=== PATIENT | male | born 1945 | race Caucasian/White ===

== ENCOUNTER 2020-09-30 11:10 | Inpatient (IN) ==
[2020-09-30] MEDS ORDERED: Saline Nasal Spray 44 ML BOTTLE NS PRN (20:00)
[2020-09-30] MEDS: NIFEdipine XL (24 HR) 60 MG TAB.ER.24 PO SCH (22:09)
[2020-09-30] MEDS: Melatonin 3 MG TABLET PO SCH (22:09)
[2020-09-30] MEDS: ZINC OXIDE TP SCH (22:10)
[2020-09-30] MEDS: hydrALAZINE 25 MG TABLET PO SCH (22:10)
[2020-09-30] MEDS: DIMETHICONE TP SCH (22:10)
[2020-10-01 05:01] LABS: Basophils % 0.4 %; Eosinophils % 0.2 %; Hematocrit 28.9 % (37.5-50.1); Hemoglobin 9.5 g/dL (12.9-16.9); Immature Granulocytes % 0.6 % (0-4); Lymphocytes # 0.8 K/mcL (0.6-4.6); Lymphocytes % 16.4 %; Mean Corpuscular HGB Conc 32.9 g/dL (31.6-35.5); Mean Corpuscular Hemoglobin 27.6 pg (28.0-33.3); Mean Platelet Volume 10.4 fL (9.4-12.4); Monocytes # 0.5 K/mcL (0.0-1.3); Monocytes % 10.3 %; Neutrophils # 3.7 K/mcL (1.6-8.9); Platelet Count 110 K/mcL (140-400); Red Blood Count 3.44 M/mcL (4.19-5.50); Segmented Neutrophils % 72.1 %; White Blood Count 5.1 K/mcL (4.3-11.1)
[2020-10-01 05:12] LABS: Calcium 8.5 mg/dL (8.6-10.3)
[2020-10-01] MEDS: DIMETHICONE TP SCH ×2 (08:11→20:54)
[2020-10-01] MEDS: ZINC OXIDE TP SCH ×2 (08:11→20:54)
[2020-10-01] MEDS: hydrALAZINE 25 MG TABLET PO SCH ×3 (08:13→20:57)
[2020-10-01] MEDS: Sennosides 8.6 MG TABLET PO SCH (08:13)
[2020-10-01] MEDS: NIFEdipine XL (24 HR) 60 MG TAB.ER.24 PO SCH ×2 (08:13→20:57)
[2020-10-01] MEDS: Cholecalciferol (D-3) 1,000 UNIT (25MCG) TABLET PO SCH (08:13)
[2020-10-01] MEDS: Cyanocobalamin (B-12) 1,000 MCG TABLET PO SCH (08:13)
[2020-10-01] MEDS: Melatonin 3 MG TABLET PO SCH (20:57)
[2020-10-02] MEDS: Cholecalciferol (D-3) 1,000 UNIT (25MCG) TABLET PO SCH (09:37)
[2020-10-02] MEDS: Cyanocobalamin (B-12) 1,000 MCG TABLET PO SCH (09:37)
[2020-10-02] MEDS: carvediloL 25 MG TABLET PO SCH ×2 (09:37→16:09)
[2020-10-02] MEDS: Sennosides 8.6 MG TABLET PO SCH (09:38)
[2020-10-02] MEDS: DIMETHICONE TP SCH (09:38)
[2020-10-02] MEDS: NIFEdipine XL (24 HR) 60 MG TAB.ER.24 PO SCH ×2 (09:38→20:24)
[2020-10-02] MEDS: ZINC OXIDE TP SCH (09:38)
[2020-10-02] MEDS: hydrALAZINE 25 MG TABLET PO SCH ×3 (09:38→20:20)
[2020-10-02] MEDS: Melatonin 3 MG TABLET PO SCH (20:24)
[2020-10-03] MEDS: Cyanocobalamin (B-12) 1,000 MCG TABLET PO SCH (08:59)
[2020-10-03] MEDS: hydrALAZINE 25 MG TABLET PO SCH ×3 (08:59→21:46)
[2020-10-03] MEDS: Sennosides 8.6 MG TABLET PO SCH (08:59)
[2020-10-03] MEDS: Cholecalciferol (D-3) 1,000 UNIT (25MCG) TABLET PO SCH (08:59)
[2020-10-03] MEDS: carvediloL 25 MG TABLET PO SCH ×2 (09:00→17:23)
[2020-10-03] MEDS: NIFEdipine XL (24 HR) 60 MG TAB.ER.24 PO SCH ×2 (09:00→21:47)
[2020-10-03] MEDS: Melatonin 3 MG TABLET PO SCH (21:46)
[2020-10-04] MEDS: Cyanocobalamin (B-12) 1,000 MCG TABLET PO SCH (09:06)
[2020-10-04] MEDS: Cholecalciferol (D-3) 1,000 UNIT (25MCG) TABLET PO SCH (09:06)
[2020-10-04] MEDS: carvediloL 25 MG TABLET PO SCH ×2 (09:07→17:33)
[2020-10-04] MEDS: NIFEdipine XL (24 HR) 60 MG TAB.ER.24 PO SCH ×2 (09:07→20:57)
[2020-10-04] MEDS: hydrALAZINE 25 MG TABLET PO SCH ×3 (09:07→20:57)
[2020-10-04] MEDS: Sennosides 8.6 MG TABLET PO SCH (09:09)
[2020-10-04] MEDS ORDERED: Acetaminophen 325 MG TABLET PO PRN (14:09)
[2020-10-04] MEDS: Melatonin 3 MG TABLET PO SCH (20:57)
[2020-10-05] MEDS: Cholecalciferol (D-3) 1,000 UNIT (25MCG) TABLET PO SCH (08:50)
[2020-10-05] MEDS: carvediloL 25 MG TABLET PO SCH ×2 (08:51→17:47)
[2020-10-05] MEDS: Cyanocobalamin (B-12) 1,000 MCG TABLET PO SCH (08:51)
[2020-10-05] MEDS: hydrALAZINE 25 MG TABLET PO SCH ×3 (08:51→21:12)
[2020-10-05] MEDS: NIFEdipine XL (24 HR) 60 MG TAB.ER.24 PO SCH ×2 (11:06→21:13)
[2020-10-05] MEDS: Sennosides 8.6 MG TABLET PO SCH (11:06)
[2020-10-05] MEDS: Melatonin 3 MG TABLET PO SCH (21:13)
[2020-10-06 04:57] LABS: Basophils # 0.1 K/mcL (0.0-0.2); Basophils % 0.6 %; Hematocrit 26.2 % (37.5-50.1); Hemoglobin 8.5 g/dL (12.9-16.9); Immature Granulocytes % 0.9 % (0-4); Lymphocytes # 1.4 K/mcL (0.6-4.6); Lymphocytes % 17.4 %; Mean Corpuscular HGB Conc 32.4 g/dL (31.6-35.5); Mean Corpuscular Hemoglobin 27.7 pg (28.0-33.3); Mean Corpuscular Volume 85.3 fL (83.0-100.0); Mean Platelet Volume 9.7 fL (9.4-12.4); Monocytes # 1.1 K/mcL (0.0-1.3); Monocytes % 14.1 %; Neutrophils # 5.4 K/mcL (1.6-8.9); Platelet Count 122 K/mcL (140-400); Red Blood Count 3.07 M/mcL (4.19-5.50); Red Cell Distribution Width 14.1 % (11.5-14.5); White Blood Count 8.1 K/mcL (4.3-11.1)
[2020-10-06 05:10] LABS: Calcium 8.3 mg/dL (8.6-10.3); Potassium 4.6 mEq/L (3.5-5.1)
[2020-10-06] MEDS: carvediloL 25 MG TABLET PO SCH ×2 (08:15→17:35)
[2020-10-06] MEDS: Cholecalciferol (D-3) 1,000 UNIT (25MCG) TABLET PO SCH (08:15)
[2020-10-06] MEDS: Sennosides 8.6 MG TABLET PO SCH (08:16)
[2020-10-06] MEDS: hydrALAZINE 25 MG TABLET PO SCH ×3 (08:16→22:00)
[2020-10-06] MEDS: NIFEdipine XL (24 HR) 60 MG TAB.ER.24 PO SCH ×2 (08:16→22:00)
[2020-10-06] MEDS: Cyanocobalamin (B-12) 1,000 MCG TABLET PO SCH (08:17)
[2020-10-06] MEDS: ZINC 30 MG PO SCH (08:18)
[2020-10-06] MEDS: FRIENDLY FLORA PO SCH (08:18)
[2020-10-06] MEDS: ASCORBIC ACID 500 MG PO SCH (08:24)
[2020-10-06] MEDS ORDERED: LACTOBACILLUS PO SCH (09:00)
[2020-10-06] MEDS: Melatonin 3 MG TABLET PO SCH (22:00)
[2020-10-06] MEDS: [UNRECOGNIZED DRUG - OTHER] PO SCH (22:01)
[2020-10-07] MEDS: NIFEdipine XL (24 HR) 60 MG TAB.ER.24 PO SCH ×2 (08:12→20:44)
[2020-10-07] MEDS: Cyanocobalamin (B-12) 1,000 MCG TABLET PO SCH (08:12)
[2020-10-07] MEDS: Cholecalciferol (D-3) 1,000 UNIT (25MCG) TABLET PO SCH (08:12)
[2020-10-07] MEDS: Sennosides 8.6 MG TABLET PO SCH (08:13)
[2020-10-07] MEDS: hydrALAZINE 25 MG TABLET PO SCH ×3 (08:13→20:44)
[2020-10-07] MEDS: carvediloL 25 MG TABLET PO SCH ×2 (08:13→16:24)
[2020-10-07] MEDS: FRIENDLY FLORA PO SCH (08:14)
[2020-10-07] MEDS: ASCORBIC ACID 500 MG PO SCH (08:14)
[2020-10-07] MEDS: ZINC 30 MG PO SCH (08:14)
[2020-10-07] MEDS: Melatonin 3 MG TABLET PO SCH (20:43)
[2020-10-07] MEDS: [UNRECOGNIZED DRUG - OTHER] PO SCH (20:53)
[2020-10-08 05:07] LABS: Basophils # 0.1 K/mcL (0.0-0.2); Basophils % 0.6 %; Hematocrit 25.8 % (37.5-50.1); Hemoglobin 8.3 g/dL (12.9-16.9); Immature Granulocytes % 1.3 % (0-4); Lymphocytes # 1.3 K/mcL (0.6-4.6); Lymphocytes % 13.9 %; Mean Corpuscular HGB Conc 32.2 g/dL (31.6-35.5); Mean Corpuscular Hemoglobin 27.4 pg (28.0-33.3); Mean Corpuscular Volume 85.1 fL (83.0-100.0); Mean Platelet Volume 9.7 fL (9.4-12.4); Monocytes % 11.3 %; Neutrophils # 6.6 K/mcL (1.6-8.9); Platelet Count 167 K/mcL (140-400); Red Blood Count 3.03 M/mcL (4.19-5.50); Red Cell Distribution Width 14.3 % (11.5-14.5); Segmented Neutrophils % 72.9 %
[2020-10-08 05:22] LABS: Calcium 8.6 mg/dL (8.6-10.3)
[2020-10-08] MEDS: NIFEdipine XL (24 HR) 60 MG TAB.ER.24 PO SCH ×2 (08:40→20:49)
[2020-10-08] MEDS: carvediloL 25 MG TABLET PO SCH ×2 (08:40→17:23)
[2020-10-08] MEDS: Cholecalciferol (D-3) 1,000 UNIT (25MCG) TABLET PO SCH (08:40)
[2020-10-08] MEDS: Cyanocobalamin (B-12) 1,000 MCG TABLET PO SCH (08:41)
[2020-10-08] MEDS: hydrALAZINE 25 MG TABLET PO SCH ×3 (08:41→20:49)
[2020-10-08] MEDS: Sennosides 8.6 MG TABLET PO SCH (08:41)
[2020-10-08] MEDS: FRIENDLY FLORA PO SCH (08:42)
[2020-10-08] MEDS: ZINC 30 MG PO SCH (08:42)
[2020-10-08] MEDS: ASCORBIC ACID 500 MG PO SCH (08:44)
[2020-10-08] MEDS: Melatonin 3 MG TABLET PO SCH (20:49)
[2020-10-08] MEDS: [UNRECOGNIZED DRUG - OTHER] PO SCH (20:52)
[2020-10-09] MEDS: FRIENDLY FLORA PO SCH (08:41)
[2020-10-09] MEDS: NIFEdipine XL (24 HR) 60 MG TAB.ER.24 PO SCH ×2 (08:41→21:10)
[2020-10-09] MEDS: Sennosides 8.6 MG TABLET PO SCH (08:41)
[2020-10-09] MEDS: hydrALAZINE 25 MG TABLET PO SCH ×3 (08:41→21:11)
[2020-10-09] MEDS: Cholecalciferol (D-3) 1,000 UNIT (25MCG) TABLET PO SCH (08:41)
[2020-10-09] MEDS: carvediloL 25 MG TABLET PO SCH ×2 (08:41→16:23)
[2020-10-09] MEDS: Cyanocobalamin (B-12) 1,000 MCG TABLET PO SCH (08:41)
[2020-10-09] MEDS: ASCORBIC ACID 500 MG PO SCH (08:42)
[2020-10-09] MEDS: ZINC 30 MG PO SCH (08:42)
[2020-10-09] MEDS: Melatonin 3 MG TABLET PO SCH (21:10)
[2020-10-09] MEDS: [UNRECOGNIZED DRUG - OTHER] PO SCH (21:12)
[2020-10-10] MEDS: Cholecalciferol (D-3) 1,000 UNIT (25MCG) TABLET PO SCH (10:18)
[2020-10-10] MEDS: Cyanocobalamin (B-12) 1,000 MCG TABLET PO SCH (10:19)
[2020-10-10] MEDS: hydrALAZINE 25 MG TABLET PO SCH ×3 (10:19→20:57)
[2020-10-10] MEDS: Sennosides 8.6 MG TABLET PO SCH (10:19)
[2020-10-10] MEDS: NIFEdipine XL (24 HR) 60 MG TAB.ER.24 PO SCH ×2 (10:19→20:59)
[2020-10-10] MEDS: carvediloL 25 MG TABLET PO SCH ×2 (10:19→18:35)
[2020-10-10] MEDS: ASCORBIC ACID 500 MG PO SCH (10:20)
[2020-10-10] MEDS: FRIENDLY FLORA PO SCH (10:20)
[2020-10-10] MEDS: ZINC 30 MG PO SCH (10:20)
[2020-10-10] MEDS: Melatonin 3 MG TABLET PO SCH (20:58)
[2020-10-10] MEDS: [UNRECOGNIZED DRUG - OTHER] PO SCH (20:58)
[2020-10-11] MEDS: NIFEdipine XL (24 HR) 60 MG TAB.ER.24 PO SCH (08:10)
[2020-10-11] MEDS: Cholecalciferol (D-3) 1,000 UNIT (25MCG) TABLET PO SCH (08:10)
[2020-10-11] MEDS: Cyanocobalamin (B-12) 1,000 MCG TABLET PO SCH (08:10)
[2020-10-11] MEDS: carvediloL 25 MG TABLET PO SCH ×2 (08:11→19:02)
[2020-10-11] MEDS: ASCORBIC ACID 500 MG PO SCH (08:12)
[2020-10-11] MEDS: FRIENDLY FLORA PO SCH (08:12)
[2020-10-11] MEDS: ZINC 30 MG PO SCH (08:13)
[2020-10-11] MEDS: hydrALAZINE 25 MG TABLET PO SCH ×2 (08:13→16:41)
[2020-10-11] MEDS: Sennosides 8.6 MG TABLET PO SCH (08:13)
[2020-10-11] MEDS: Melatonin 3 MG TABLET PO SCH (22:10)
[2020-10-11] MEDS: hydrALAZINE 10 MG TABLET PO SCH (22:10)
[2020-10-11] MEDS: [UNRECOGNIZED DRUG - OTHER] PO SCH (22:10)
[2020-10-12] MEDS: FRIENDLY FLORA PO SCH (08:22)
[2020-10-12] MEDS: ASCORBIC ACID 500 MG PO SCH (08:22)
[2020-10-12] MEDS: ZINC 30 MG PO SCH (08:22)
[2020-10-12] MEDS: Aspirin Enteric Coated 81 MG Tablet PO SCH (08:23)
[2020-10-12] MEDS: Cholecalciferol (D-3) 1,000 UNIT (25MCG) TABLET PO SCH (08:23)
[2020-10-12] MEDS: Cyanocobalamin (B-12) 1,000 MCG TABLET PO SCH (08:23)
[2020-10-12] MEDS: NIFEdipine XL (24 HR) 60 MG TAB.ER.24 PO SCH (08:23)
[2020-10-12] MEDS: hydrALAZINE 10 MG TABLET PO SCH ×3 (08:23→20:38)
[2020-10-12] MEDS: carvediloL 25 MG TABLET PO SCH ×2 (08:24→18:03)
[2020-10-12] MEDS: Sennosides 8.6 MG TABLET PO SCH (08:25)
[2020-10-12] MEDS: Melatonin 3 MG TABLET PO SCH (20:38)
[2020-10-12] MEDS: [UNRECOGNIZED DRUG - OTHER] PO SCH (20:40)
[2020-10-13] MEDS: Cholecalciferol (D-3) 1,000 UNIT (25MCG) TABLET PO SCH (08:08)
[2020-10-13] MEDS: Sennosides 8.6 MG TABLET PO SCH (08:08)
[2020-10-13] MEDS: NIFEdipine XL (24 HR) 60 MG TAB.ER.24 PO SCH (08:08)
[2020-10-13] MEDS: hydrALAZINE 10 MG TABLET PO SCH ×3 (08:08→20:09)
[2020-10-13] MEDS: Cyanocobalamin (B-12) 1,000 MCG TABLET PO SCH (08:08)
[2020-10-13] MEDS: Aspirin Enteric Coated 81 MG Tablet PO SCH (08:08)
[2020-10-13] MEDS: FRIENDLY FLORA PO SCH (08:09)
[2020-10-13] MEDS: ASCORBIC ACID 500 MG PO SCH (08:09)
[2020-10-13] MEDS: ZINC 30 MG PO SCH (08:09)
[2020-10-13] MEDS: carvediloL 25 MG TABLET PO SCH ×2 (08:11→17:13)
[2020-10-13] MEDS: Melatonin 3 MG TABLET PO SCH (20:07)
[2020-10-13] MEDS: [UNRECOGNIZED DRUG - OTHER] PO SCH (20:14)
[2020-10-14] MEDS: Cholecalciferol (D-3) 1,000 UNIT (25MCG) TABLET PO SCH (08:10)
[2020-10-14] MEDS: Aspirin Enteric Coated 81 MG Tablet PO SCH (08:11)
[2020-10-14] MEDS: NIFEdipine XL (24 HR) 60 MG TAB.ER.24 PO SCH (08:11)
[2020-10-14] MEDS: Cyanocobalamin (B-12) 1,000 MCG TABLET PO SCH (08:11)
[2020-10-14] MEDS: Sennosides 8.6 MG TABLET PO SCH (08:11)
[2020-10-14] MEDS: hydrALAZINE 10 MG TABLET PO SCH ×3 (08:11→21:17)
[2020-10-14] MEDS: ZINC 30 MG PO SCH (08:13)
[2020-10-14] MEDS: FRIENDLY FLORA PO SCH (08:13)
[2020-10-14] MEDS: carvediloL 25 MG TABLET PO SCH ×2 (08:14→18:44)
[2020-10-14] MEDS: ASCORBIC ACID 500 MG PO SCH (08:14)
[2020-10-14] MEDS: Melatonin 3 MG TABLET PO SCH (21:17)
[2020-10-14] MEDS: [UNRECOGNIZED DRUG - OTHER] PO SCH (21:18)
[2020-10-15] MEDS: Cholecalciferol (D-3) 1,000 UNIT (25MCG) TABLET PO SCH (08:06)
[2020-10-15] MEDS: NIFEdipine XL (24 HR) 60 MG TAB.ER.24 PO SCH (08:06)
[2020-10-15] MEDS: FRIENDLY FLORA PO SCH (08:07)
[2020-10-15] MEDS: hydrALAZINE 10 MG TABLET PO SCH ×3 (08:07→20:51)
[2020-10-15] MEDS: ZINC 30 MG PO SCH (08:07)
[2020-10-15] MEDS: Aspirin Enteric Coated 81 MG Tablet PO SCH (08:07)
[2020-10-15] MEDS: Cyanocobalamin (B-12) 1,000 MCG TABLET PO SCH (08:07)
[2020-10-15] MEDS: ASCORBIC ACID 500 MG PO SCH (08:07)
[2020-10-15] MEDS: carvediloL 25 MG TABLET PO SCH ×2 (08:08→17:05)
[2020-10-15] MEDS: Sennosides 8.6 MG TABLET PO SCH (08:08)
[2020-10-15] MEDS: Melatonin 3 MG TABLET PO SCH (20:50)
[2020-10-15] MEDS: [UNRECOGNIZED DRUG - OTHER] PO SCH (20:57)
[2020-10-16 06:52] VITALS: BP 152/67
[2020-10-16] MEDS: hydrALAZINE 10 MG TABLET PO SCH (09:07)
[2020-10-16] MEDS: NIFEdipine XL (24 HR) 60 MG TAB.ER.24 PO SCH (09:07)
[2020-10-16] MEDS: Aspirin Enteric Coated 81 MG Tablet PO SCH (09:07)
[2020-10-16] MEDS: Cyanocobalamin (B-12) 1,000 MCG TABLET PO SCH (09:07)
[2020-10-16] MEDS: Sennosides 8.6 MG TABLET PO SCH (09:08)
[2020-10-16] MEDS: carvediloL 25 MG TABLET PO SCH (09:08)
[2020-10-16] MEDS: FRIENDLY FLORA PO SCH (09:09)
[2020-10-16] MEDS: ASCORBIC ACID 500 MG PO SCH (09:09)
[2020-10-16] MEDS: ZINC 30 MG PO SCH (09:10)
[2020-10-16] MEDS: Cholecalciferol (D-3) 1,000 UNIT (25MCG) TABLET PO SCH (09:16)
[2020-10-16 10:08] LABS: Basophils # 0.1 K/mcL (0.0-0.2); Basophils % 1.3 %; Hematocrit 31.7 % (37.5-50.1); Hemoglobin 9.9 g/dL (12.9-16.9); Immature Granulocytes % 2.5 % (0-4); Lymphocytes # 1.1 K/mcL (0.6-4.6); Lymphocytes % 10.4 %; Mean Corpuscular HGB Conc 31.2 g/dL (31.6-35.5); Mean Corpuscular Hemoglobin 27.4 pg (28.0-33.3); Mean Corpuscular Volume 87.8 fL (83.0-100.0); Mean Platelet Volume 9.4 fL (9.4-12.4); Monocytes # 0.7 K/mcL (0.0-1.3); Monocytes % 6.9 %; Neutrophils # 7.9 K/mcL (1.6-8.9); Platelet Count 297 K/mcL (140-400); Red Blood Count 3.61 M/mcL (4.19-5.50); Red Cell Distribution Width 14.2 % (11.5-14.5); Segmented Neutrophils % 78.9 %; White Blood Count 10.1 K/mcL (4.3-11.1)
[2020-10-16 10:21] LABS: Calcium 9.2 mg/dL (8.6-10.3); Potassium 4.6 mEq/L (3.5-5.1)
== END 2020-10-16 14:30 | disposition home or self-care (01) | DRG 56 ==
LOC: INPGRE 18:10
PROVIDERS: ADMIT Family Medicine; ATTEND Family Medicine